=== PATIENT | female | born 1970 | race Caucasian/White ===

== ENCOUNTER 2022-12-04 08:10 | Emergency (ER) | payer OTHER ==
[2022-12-04 08:21] VITALS: BP 113/76; PULSE 91; RESP 18; TEMP 97.9; BMI 33.0
[2022-12-04] MEDS ORDERED: KETOROLAC TROMETHAMINE 30 MG/1 ML VIAL IM ONE (09:00)
[2022-12-04] MEDS ORDERED: LIDOCAINE 5% TOPICAL PATCH TP ONE ×2 (09:00→09:01)
[2022-12-04] MEDS ORDERED: ACETAMINOPHEN 500 MG TABLET (FP) PO ONE (09:01)
[2022-12-04] MEDS ORDERED: ACETAMINOPHEN 325 MG TABLET (FP) ONE (09:18)
[2022-12-04] MEDS ORDERED: LIDOCAINE 5% TOPICAL PATCH ONE (09:18)
[2022-12-04] MEDS ORDERED: KETOROLAC TROMETHAMINE 30 MG/1 ML VIAL ONE (09:19)
[2022-12-04 10:31] LABS: ARTERIAL BLD GAS O2 SATURATION 96.7 % (95-98); ARTERIAL BLOOD GAS BASE EXCESS 2.3 mmol/L (-2-2); ARTERIAL BLOOD GAS PO2 86.8 mmHg (80-100); ARTERIAL BLOOD GAS pH 7.415 (7.350-7.450)
[2022-12-04 10:32] LABS: ALLENS TEST POSITIVE
[2022-12-04] MEDS ORDERED: LIDOCAINE PATCH REMOVAL MC ONE ×2 (22:00)
== END 2022-12-04 10:40 | disposition home or self-care (01) ==
LOC: JER 08:10
PROC: 3E0233Z Introduction of Anti-inflammatory into Muscle, Percutaneous Approach (ICD-10-PCS; principal; 2022-12-04)
DX: M54.50 Low back pain, unspecified (principal); G89.29 Other chronic pain; T59.811A Toxic effect of smoke, accidental (unintentional), initial encounter; J70.5 Respiratory conditions due to smoke inhalation; X00.0XXA Exposure to flames in uncontrolled fire in building or structure, initial encounter; X01.1XXA Exposure to smoke in uncontrolled fire, not in building or structure, initial encounter; Y93.K9 Activity, other involving animal care; Y92.038 Other place in apartment as the place of occurrence of the external cause
CPT/HCPCS: 36600; 71046-TC-FY; 82375; 82803; 99284-25